=== PATIENT | female | born 1960 | race Caucasian/White ===

== ENCOUNTER 2017-03-27 19:12 | Emergency (ER) | payer BC ==
[~2017-03-27] VITALS: Ht 170.2 cm; Wt 76.9 kg
[2017-03-27 19:15] VITALS: TEMP 36.6; Ht 170.2 cm; Wt 76.9 kg
[2017-03-27] MEDS ORDERED: SODIUM CHLORIDE 0.9% 1000ML 1,000 ML IV STA (19:33)
[2017-03-27] MEDS ORDERED: ONDANSETRON INJ 2 MG/ML 2 ML VIAL IV STA (19:33)
[2017-03-27] MEDS ORDERED: SODIUM CHLORIDE 0.9% 500ML 500 ML IV STA (19:33)
[2017-03-27 19:46] LABS: BASO % 0.2 %; BASO ABS # 0.02 K/uL (0-0.2); COMPLETE YES; EOS % 0.1 %; HEMATOCRIT 35.5 % (37-47); IG% 0.3 %; LYMPH % 23.1 %; LYMPH ABS # 2.65 K/uL (1.2-3.4); MEAN CORPUSCULAR HEMOGLOBIN 30.1 pg (25-34); MEAN CORPUSCULAR HGB CONC 33.8 g/dl (32-36); MEAN PLATELET VOLUME 9.6 fL (7.4-10.4); MONO % 4.5 %; NEUT % 71.8 %; PLATELET COUNT 278 K/uL (130-400); RED BLOOD COUNT 3.99 M/uL (4.2-5.4); WHITE BLOOD COUNT 11.46 K/uL (4.8-10.8)
[2017-03-27] MEDS ORDERED: ACET325T96 PO (19:55)
[2017-03-27 20:03] LABS: BUN/CREATININE RATIO 25.1 (10-20); CREATININE 0.71 mg/dl (0.60-1.20); POTASSIUM 3.6 mmol/L (3.5-5.1)
[2017-03-27 20:08] LABS: URINE APPEARANCE CLEAR (CLEAR); URINE BILIRUBIN NEG (NEG); URINE COLOR YELLOW; URINE NITRITE NEG (NEG); URINE SPECIFIC GRAVITY 1.028 (1.000-1.030); UROBILINOGEN NEG (NEG)
[2017-03-27 20:32] LABS: MANUAL MICROSCOPIC REQUIRED? NO; REVIEW REQ? NO
[2017-03-27] MEDS ORDERED: ONDA4TAB10 SL (20:41)
[2017-03-27] MEDS ORDERED: ONDANSETRON HOME PACK 4MG OD TAB PO ONE (20:45)
[2017-03-27 20:58] VITALS: BP 106/67; PULSE 50; O2SAT 98
--- NOTE | 2017-03-27 22:46 | EMERGENCY ROOM VISIT NOTE ---
History First contact with patient: 19:22 Chief Complaint: VOMITING Stated Complaint: FOOD POISIONING Nursing Triage Summary: pt c/o n/v/d History of Present Illness The patient is a 56 year old female who presents to the Emergency Room with complaints of central abdominal pain, nausea, vomiting and 3 episodes of watery diarrhea today. The patient reports that she was at a wedding yesterday. At the end of the wedding, they brought some of the food back out and she ate a Mongolian spread against her own judgment. The patient also reports that she had a large amount of alcohol yesterday as well, but has never had any adverse gastric event with alcohol. She denies any known sick contacts. Her ate most of the food that she did earlier in the day, and did not get sick. The patient denies any blood in her stool or fever. She currently rates her abdominal discomfort a 2 out of 10. She denies any prior history of gallbladder disease or pancreatitis. She does have a history of GERD, but currently does not take any medications and has had no recent problems with reflux. She is status post total abdominal hysterectomy. She denies any chest pain, shortness of breath or pain radiating into the back. Review of Systems HEENT: Denies dizziness, visual problems, hearing loss, tinnitus. Denies difficulty swallowing or oral lesions. PULMONARY: Denies cough, shortness of breath, sputum production or hemoptysis. CARDIOVASCULAR: Denies chest pain, palpitations, dyspnea on exertion, orthopnea or peripheral edema. GASTROINTESTINAL: See history of present illness. GENITOURINARY: Denies dysuria, frequency, urgency or nocturia. NEUROLOGIC: Denies history of epilepsy, CVA, TIA or chronic headaches. MUSCULOSKELETAL: Denies history of joint tenderness/swelling. SKIN: Denies rashes or lesions. PSYCHIATRIC: Denies history of depression or mental illness. ENDOCRINE: Denies history of diabetes or thyroid disorders. Past Medical/Surgical History Medical Problems: (1) Diaphragmatic Hernia (2) Esophageal Reflux (3) Tobacco Use Disorder Surgical Problems: (1) History of total abdominal hysterectomy Family History FH: cancer Social History Smoking Status: Never Smoker Alcohol Use: occasionally Marital Status: Occupation Status: employed Current/Historical Medications Scheduled Acetaminophen Tab (Tylenol), 325 MG PO DAILY Ondasetron Odt (Zofran Odt), 4 MG SL Q6H Allergies Coded Allergies: No Known Allergies (Verified , 03/27/17) Physical Exam Vital Signs Date Time Temp Pulse Resp B/P (MAP) Pulse Ox O2 Delivery O2 Flow Rate FiO2 03/27/17 20:58 50 16 106/67 98 03/27/17 19:15 36.6 73 18 121/68 95 Room Air Physical Exam CONSTITUTIONAL: Healthy and well nourished. Alert and oriented X 3 with positive affect. Patient does not appear acutely ill or toxic. HEENT: Normocephalic, atraumatic. Pupils equal, round and reactive. Ears and nares are clear. No scleral icterus or conjunctival pallor. OROPHARYNX: No posterior pharyngeal erythema, tonsillar hypertrophy or exudates. NECK: Full active range of motion without discomfort. RESPIRATORY: Clear to auscultation bilaterally with no wheezing, crackles, rhonchi or stridor. CARDIOVASCULAR: Regular rate and rhythm with no murmurs, rubs or gallops. GASTROINTESTINAL: Bowel sounds present in all quadrants. Patient has mild central abdominal tenderness to palpation. Negative CVA tenderness. Negative McBurney's point tenderness. Negative Paulino sign. No abdominal rigidity, guarding or rebound. MUSCULOSKELETAL: Full range of motion of all joints without discomfort. INTEGUMENTARY: No rash or other significant dermatologic conditions noted. NEUROLOGIC: No focal neurologic deficits noted. Medical Decision & Procedures Laboratory Results 03/27/17 19:35 Red Blood Count 3.99, Mean Corpuscular Volume 89.0, Mean Corpuscular Hemoglobin 30.1, Mean Corpuscular Hemoglobin Concent 33.8, Mean Platelet Volume 9.6, Neutrophils (%) (Auto) 71.8, Lymphocytes (%) (Auto) 23.1, Monocytes (%) (Auto) 4.5, Eosinophils (%) (Auto) 0.1, Basophils (%) (Auto) 0.2, Neutrophils # (Auto) 8.23, Lymphocytes # (Auto) 2.65, Monocytes # (Auto) 0.52, Eosinophils # (Auto) 0.01, Basophils # (Auto) 0.02 03/27/17 19:35 Test 03/27/17 00:00 03/27/17 19:35 Urine Color YELLOW Urine Appearance CLEAR (CLEAR) Urine pH 7.0 (4.5-7.5) Urine Specific [place] 1.028 (1.000-1.030) Urine Protein NEG (NEG) Urine Glucose (UA) NEG (NEG) Urine Ketones 2+ (NEG) Urine Occult Blood NEG (NEG) Urine Nitrite NEG (NEG) Urine Bilirubin NEG (NEG) Urine Urobilinogen NEG (NEG) Urine Leukocyte Esterase NEG (NEG) White Blood Count 11.46 K/uL (4.8-10.8) Red Blood Count 3.99 M/uL (4.2-5.4) Hemoglobin 12.0 g/dL (12.0-16.0) Hematocrit 35.5 % (37-47) Mean Corpuscular Volume 89.0 fL (80-100) Mean Corpuscular Hemoglobin 30.1 pg (25-34) Mean Corpuscular Hemoglobin Concent 33.8 g/dl (32-36) Platelet Count 278 K/uL (130-400) Mean Platelet Volume 9.6 fL (7.4-10.4) Neutrophils (%) (Auto) 71.8 % Lymphocytes (%) (Auto) 23.1 % Monocytes (%) (Auto) 4.5 % Eosinophils (%) (Auto) 0.1 % Basophils (%) (Auto) 0.2 % Neutrophils # (Auto) 8.23 K/uL (1.4-6.5) Lymphocytes # (Auto) 2.65 K/uL (1.2-3.4) Monocytes # (Auto) 0.52 K/uL (0.11-0.59) Eosinophils # (Auto) 0.01 K/uL (0-0.5) Basophils # (Auto) 0.02 K/uL (0-0.2) RDW Standard Deviation 42.1 fL (36.4-46.3) RDW Coefficient of Variation 12.9 % (11.5-14.5) Immature Granulocyte % (Auto) 0.3 % Immature Granulocyte # (Auto) 0.03 K/uL (0.00-0.02) Anion Gap 7.0 mmol/L (3-11) Est Creatinine Clear Calc Drug Dose 95.7 ml/min Estimated GFR () 111.1 Estimated GFR (Non- 95.9 BUN/Creatinine Ratio 25.1 (10-20) Calcium Level 9.0 mg/dl (8.5-10.1) Total Bilirubin 0.6 mg/dl (0.2-1) Direct Bilirubin 0.1 mg/dl (0-0.2) Aspartate Amino Transf (AST/SGOT) 15 U/L (15-37) Alanine Aminotransferase (ALT/SGPT) 21 U/L (12-78) Alkaline Phosphatase 68 U/L (45-117) Total Creatine Kinase 75 U/L (26-192) Total Protein 6.7 gm/dl (6.4-8.2) Albumin 3.6 gm/dl (3.4-5.0) Lipase 113 U/L (73-393) The above labs were reviewed, showing a mild leukocytosis with left shift and bandemia. Partial renal profile, LFTs and lipase are otherwise grossly normal. Urinalysis shows ketonuria without signs of infection. Medications Administered Medications (Trade) Dose Ordered Sig/James Route Start Time Stop Time Status Last Admin Dose Admin Sodium Chloride 1,000 ml @ 999 mls/hr Q1H1M STAT IV 03/27/17 19:33 03/27/17 20:33 DC 03/27/17 19:33 999 MLS/HR Sodium Chloride 500 ml @ 999 mls/hr Q31M STAT IV 03/27/17 19:33 03/27/17 20:03 DC 03/27/17 19:33 999 MLS/HR Ondansetron HCl (Zofran Inj) 4 mg NOW STAT IV 03/27/17 19:33 03/27/17 19:37 DC 03/27/17 19:49 4 MG Ondansetron HCl (ZOFRAN ODT 4MG Home Pack) 1 homepack UD ONCE PO 03/27/17 20:45 03/27/17 20:46 DC 03/27/17 20:45 1 HOMEPACK Procedure 1. IV hydration: The patient was hydrated with normal saline 1500 mL 2. IV medications: Zofran 4 mg IVP ED Course Patient history and physical exam were performed. Nurse's notes were reviewed. Vital signs were reviewed and normal without hypotension or tachycardia. The patient is also afebrile. IV access was established and labs were drawn. The patient was hydrated with normal saline, and received IV Zofran for nausea. She refused any analgesics. Review of labs shows a mild leukocytosis with no other significant laboratory studies. The patient reported feeling much better with hydration and IV Zofran. The patient was unable to provide a stool sample while in the emergency department, and felt well enough to go home. The patient was instructed to remain well-hydrated. She was provided a home pack and prescription for Zofran as needed for nausea. Tylenol as needed for pain. She was instructed to follow-up with her PCP if her diarrhea has not significant improved within the next 2-3 days. Return to the emergency department for any progressive worsening symptoms or fever. The patient was happy with plan of care, and voiced understanding of all discharge instructions. Medical Decision I do not suspect food poisoning. Viral gastroenteritis is highly likely. She has no electrolyte imbalances. Additional laboratory studies are not suggestive of pancreatitis, hepatitis or cholecystitis. Urinalysis does not suggest infection. At this point I do not feel that further imaging studies are warranted unless symptoms persist or worsen. Clinical exam is not consistent with diverticulitis, appendicitis, peritonitis or surgical abdomen. Impression Primary Impression: Nausea, vomiting, and diarrhea Departure Information Prescriptions Ondasetron Odt (ZOFRAN ODT) 4 Mg Tab 4 MG SL Q6H for Nausea, #15 TAB Prov: Noah Bar PA 03/27/17 Referrals Ishan Leigh D.O. (PCP) Patient Instructions [facility]
== END 2017-03-27 20:59 | disposition home or self-care (01) ==
LOC: C.EDB 19:13 → C.EDC 20:59
DX: R11.2 Nausea with vomiting, unspecified (principal); R19.7 Diarrhea, unspecified; K21.9 Gastro-esophageal reflux disease without esophagitis; F17.200 Nicotine dependence, unspecified, uncomplicated; Z90.710 Acquired absence of both cervix and uterus; Z80.9 Family history of malignant neoplasm, unspecified